=== PATIENT | female | born 1995 | race African-American/Black ===

== ENCOUNTER 2025-07-02 15:20 | Emergency (ER) | payer BC ==
[~2025-07-02] VITALS: Ht 170.2 cm; Wt 73.0 kg
[2025-07-02 15:23] VITALS: TEMP 98.2; O2SAT 100
[2025-07-02 16:12] LABS: BASOPHILS % 0.9 % (0.0-2.0); EOSINOPHILS % 1.9 % (0.0-5.0); HEMATOCRIT. 29.6 % (36.0-48.0); HEMOGLOBIN. 9.3 g/dL (12.0-16.0); LYMPHOCYTES % 10.0 % (20.0-50.0); MEAN PLATELET VOLUME 8.6 fl (7.4-10.4); MONOCYTES % 8.6 % (2.0-8.0); NEUTROPHILS % 78.6 % (40.0-76.0); PLATELET 260 x1000/uL (130-400); RED BLOOD CELL COUNT 4.33 mill/uL (4.2-5.4); RED CELL DISTRIBUTION WIDTH 20.5 % (11.6-14.6)
[2025-07-02 16:14] LABS: ADD RBC MORPHOLOGY YES
[2025-07-02 16:22] LABS: CREATININE 0.7 mg/dL (0.6-1.0); UREA NITROGEN BLOOD 7 mg/dL (9-23)
[2025-07-02 17:18] LABS: PLATELET ESTIMATE NORMAL
[2025-07-02] MEDS ORDERED: TETANUS AND DIPHTHERIA TOX/PF 0.5ML SYR (ADULT) IM ONE (17:45)
[2025-07-02] MEDS: POTASSIUM CHLORIDE 20MEQ/PACKET PO ONE (17:50)
[2025-07-02] MEDS: TETANUS, DIPHTHERIA, PERTUSSIS VAC/PF 0.5ML (>10YR OLD) IM ONE (18:02)
[2025-07-02 18:19] VITALS: BP 116/88; PULSE 64; RESP 16; O2SAT 99
== END 2025-07-02 18:20 | disposition home or self-care (01) ==
LOC: ER 15:20
DX: R55 Syncope and collapse (principal); I95.9 Hypotension, unspecified
CPT/HCPCS: 36415; 80048; 85025; 90471; 90714; 90715; 93005; 99284